=== PATIENT | female | born 1965 | race Caucasian/White ===

== ENCOUNTER 2018-08-20 13:38 | Emergency (ER) | payer OTHER ==
[~2018-08-20] VITALS: Ht 165.1 cm; Wt 77.1 kg
[~2018-08-20 13:38] MED LIST: COLACE100 MG PO; ELIQUIS5 MG PO; ORTHO-NOVUM1 EAC1 PO; PERCOCET; TRAZODONE HCL100 MG PO
[2018-08-20] MEDS ORDERED: NEURONTIN300 MG PO (13:53)
[2018-08-20] MEDS ORDERED: ASPIRIN325 PO (13:53)
[2018-08-20 16:08] VITALS: BP 140/71
== END 2018-08-20 16:08 | disposition home or self-care (01) ==
LOC: M.ERS 13:38
DX: M79.672 Pain in left foot (principal); Z90.710 Acquired absence of both cervix and uterus; Z86.718 Personal history of other venous thrombosis and embolism; Z88.8 Allergy status to other drugs, medicaments and biological substances